=== PATIENT | female | born 1935 | race Hispanic/Latino ===

== ENCOUNTER 2017-07-12 14:42 | Inpatient (IN) | payer OTHER ==
[2017-07-12] VITALS (7 sets, daily range): BP systolic 125–199; BP diastolic 64–87
[2017-07-12] MEDS ORDERED: METHYLPREDNISOLONE SOD SUCC 125MG/2ML VIAL ONE (15:12)
[2017-07-12] MEDS ORDERED: DiphenhydrAMINE HCL 50 MG/ML VIAL ONE (15:12)
[2017-07-12 15:30] LABS: BASOPHILS % (AUTO) 0.5 % (0.0-5.0); HEMATOCRIT 33.3 % (36-48); LYMPHOCYTES % (AUTO) 11.4 % (21.0-51.0); MEAN CORPUSCULAR HGB CONC 34.4 g/dL (32.0-36.0); MONOCYTES % (AUTO) 6.2 % (3.0-13.0); NEUTROPHILS % (AUTO) 76.9 % (40.0-77.0); PLATELET COUNT (AUTO) 159 K/uL (130-400); RED CELL DISTRIBUTION WIDTH 17.1 % (11.0-15.5); WHITE BLOOD COUNT (AUTO) 6.4 K/uL (4.8-10.8)
[2017-07-12] MEDS ORDERED: LABETALOL HCL 5 MG/ML 20ML VIAL IV ONE (15:35)
[2017-07-12] MEDS ORDERED: PHENYLEPHRINE HCL 10 MG/ML 1ML VIAL IV ONE (16:12)
[2017-07-12] MEDS ORDERED: ATROPINE SULFATE 0.1 MG/ML 10 ML SYG IVP ONE (16:12)
[2017-07-12] MEDS ORDERED: GLYCOPYRROLATE 0.2 MG/ML 5 ML VIAL ONE (16:12)
[2017-07-12] MEDS ORDERED: LIDOCAINE PF 2% 5ML ABBOJECT ONE (16:12)
[2017-07-12] MEDS ORDERED: LIDOCAINE HCL MPF 1% 5ML VIAL ONE (16:12)
[2017-07-12] MEDS ORDERED: PROPOFOL 10 MG/ML 20ML VIAL IV ONE (16:12)
[2017-07-12] MEDS ORDERED: NEOSTIGMINE METHYLSULFATE 1MG/ML IV ONE (16:12)
[2017-07-12] MEDS ORDERED: ROCURONIUM BROMIDE 10MG/1ML 5ML VL ONE (16:13)
[2017-07-12] MEDS ORDERED: LIDOCAINE 2%-EPI 1:200,000 20 ML VIAL IJ ONE (16:13)
[2017-07-12] MEDS ORDERED: EPINEPHRINE 1 MG/ML AMPULE ONE (16:13)
[2017-07-12] MEDS ORDERED: LIDOCAINE HCL 2% JELLY 5 ML ONE (16:13)
[2017-07-12] MEDS ORDERED: LIDOCAINE HCL 4% LTA SOL 4 ML VIAL ONE (16:13)
[2017-07-12] MEDS ORDERED: NOREPINEPHRINE BITARTRATE 1 MG/1 ML ML IV ONE (16:13)
[2017-07-12] MEDS ORDERED: FENTANYL CITRATE PF 50 MCG/1 ML 5ML AMP IV ONE (16:14)
[2017-07-12] MEDS ORDERED: MIDAZOLAM HCL 1 MG/ML 2ML VIAL ONE (16:14)
[2017-07-12 16:17] LABS: ALBUMIN 2.4 g/dL (3.5-5.0); BILIRUBIN,TOTAL 0.4 mg/dL (0.2-1.0); CREATININE 3.5 mg/dL (0.5-1.5); POTASSIUM 3.8 mmol/L (3.5-5.1); TOTAL PROTEIN, SERUM 6.5 g/dL (6.0-8.3)
[2017-07-12] MEDS ORDERED: ISOVUE-300 100 ML VIAL IV ONE (16:23)
[2017-07-12] MEDS ORDERED: HEPARIN SODIUM 1000UNIT/ML 10ML VIAL ONE (16:23)
[2017-07-12 16:38] LABS: INR 0.99 (0.85-1.15); PARTIAL THROMBOPLASTIN TIME 26.9 SEC (26.3-35.5); PROTHROMBIN TIME 10.4 SEC (9.6-11.6)
[2017-07-12] MEDS ORDERED: CEFAZOLIN 1GM / D5W 50ML 100 ML ONE (18:08)
[2017-07-12] MEDS ORDERED: PROTAMINE SULFATE 10 MG/ML 25ML VIAL IV ONE (18:53)
[2017-07-12] MEDS ORDERED: MORPHINE SULFATE 4 MG/1ML SYG IV PRN (19:15)
[2017-07-12] MEDS ORDERED: ONDANSETRON HCL 4 MG/2 ML VIAL IV PRN (19:15)
[2017-07-12] MEDS ORDERED: HYDRALAZINE HCL 20 MG/ML VIAL IV PRN (19:15)
[2017-07-12] MEDS ORDERED: ACETAMINOPHEN 325 MG TAB PO PRN ×2 (19:15)
[2017-07-12] MEDS ORDERED: ACETAMINOPHEN-CODEINE 300/30MG TAB PO PRN ×2 (19:15)
[2017-07-12 23:03] LABS: ABG BASE EXCESS -2.8 mmol/L (-2.0-3.0); ABG HCO3 19.6 mmol/L (21.0-28.0); ABG OXYGEN SATURATION 99.1 % (95.0-99.0); ABG PCO2 28 mmHg (32-45)
[2017-07-13] VITALS (20 sets, daily range): BP systolic 88–186; BP diastolic 49–92
[2017-07-13] MEDS ORDERED: PROPOFOL 1000 MG/100 ML IV PRN (00:15)
[2017-07-13] MEDS ORDERED: PROPOFOL 1000 MG/100 ML 100 ML IV PRN (00:45)
[2017-07-13 04:53] LABS: HEMATOCRIT 25.3 % (36-48); MEAN CORPUSCULAR HGB CONC 33.6 g/dL (32.0-36.0); MEAN CORPUSCULAR VOLUME 89.4 fL (79-99); PLATELET COUNT (AUTO) 152 K/uL (130-400); RED BLOOD CELL COUNT(AUTO) 2.83 MIL/uL (4.00-5.50); RED CELL DISTRIBUTION WIDTH 17.6 % (11.0-15.5)
[2017-07-13 05:45] LABS: CREATININE 3.9 mg/dL (0.5-1.5); POTASSIUM 4.6 mmol/L (3.5-5.1)
[2017-07-13] MEDS: LEVOTHYROXINE 50 MCG TABLET PO SCH (06:30)
[2017-07-13 07:21] LABS: ABG HCO3 21.4 mmol/L (21.0-28.0); ABG OXYGEN SATURATION 98.7 % (95.0-99.0); ABG PCO2 30 mmHg (32-45)
[2017-07-13] MEDS: LISINOPRIL 20 MG TABLET PO SCH (09:00)
[2017-07-13] MEDS ORDERED: PANTOPRAZOLE 40 MG/VIAL IVP SCH (09:00)
[2017-07-13] MEDS: METOPROLOL TARTRATE 25 MG TAB PO SCH (09:00)
[2017-07-13] MEDS: HYDROXYCHLOROQUINE SULFATE 200 MG TAB PO SCH (09:00)
[2017-07-13] MEDS: AMLODIPINE BESYLATE 5 MG TAB PO SCH (09:00)
[2017-07-13 10:23] LABS: ABG BASE EXCESS -7.3 mmol/L (-2.0-3.0); ABG HCO3 14.9 mmol/L (21.0-28.0); ABG OXYGEN SATURATION 98.9 % (95.0-99.0); ABG PCO2 23 mmHg (32-45)
[2017-07-13] MEDS ORDERED: HEPARIN SODIUM 5000UNIT/ML 1ML VIAL IJ PRN ×2 (12:15)
[2017-07-13] MEDS ORDERED: SODIUM CHLORIDE 0.9% 1000ML 1,000 ML IV PRN (12:15)
[2017-07-13] MEDS ORDERED: 0.9% SODIUM CHLORIDE 250 ML IV BAG IV PRN (12:15)
[2017-07-13] MEDS ORDERED: ALBUMIN (HUMAN) 25% 100 ML IV PRN (12:15)
[2017-07-13] MEDS: FAMOTIDINE/PF 20 MG/2 ML VIAL IV SCH (20:07)
[2017-07-14 03:41] VITALS: BP 144/71
[2017-07-14 03:59] LABS: HEMATOCRIT 26.7 % (36-48); MEAN CORPUSCULAR HEMOGLOBIN 31.4 pg (27.0-33.0); MEAN CORPUSCULAR HGB CONC 34.9 g/dL (32.0-36.0); MEAN CORPUSCULAR VOLUME 90.1 fL (79-99); PLATELET COUNT (AUTO) 136 K/uL (130-400); RED BLOOD CELL COUNT(AUTO) 2.96 MIL/uL (4.00-5.50); RED CELL DISTRIBUTION WIDTH 17.2 % (11.0-15.5); WHITE BLOOD COUNT (AUTO) 8.6 K/uL (4.8-10.8)
[2017-07-14 04:14] LABS: CREATININE 2.6 mg/dL (0.5-1.5); PHOSPHORUS 4.7 mg/dL (2.5-4.9); POTASSIUM 4.1 mmol/L (3.5-5.1); THYROID STIMULATING HORMONE 3.37 uIU/mL (0.36-3.74)
[2017-07-14 04:21] LABS: LYMPHOCYTES % (MANUAL) 10 % (22-44); MAN.DIFF COMMENT-IMPRESSION MANUAL DIFFERENTIAL; MONOCYTES % (MANUAL) 1 % (2-9); PLATELET MORPHOLOGY COMMENT SLIGHTLY DECREASED; SEGMENTED NEUTROPHILS % 89 % (40-70)
[2017-07-14] MEDS: LEVOTHYROXINE 50 MCG TABLET PO SCH (05:53)
[2017-07-14 07:12] VITALS: BP 144/58
[2017-07-14] MEDS: METOPROLOL TARTRATE 25 MG TAB PO SCH (08:32)
[2017-07-14] MEDS: AMLODIPINE BESYLATE 5 MG TAB PO SCH (08:33)
[2017-07-14] MEDS: HYDROXYCHLOROQUINE SULFATE 200 MG TAB PO SCH (08:33)
[2017-07-14] MEDS: LISINOPRIL 20 MG TABLET PO SCH (08:33)
[2017-07-14] MEDS ORDERED: ACET1TAB12 PO (09:48)
[2017-07-14 11:04] VITALS: BP 121/63
[2017-07-14 16:04] VITALS: BP 131/58
[2017-07-14 19:26] VITALS: BP 117/51
[2017-07-14] MEDS: FAMOTIDINE/PF 20 MG/2 ML VIAL IV SCH (20:32)
[2017-07-14 23:44] VITALS: BP 130/64
[2017-07-15 03:54] VITALS: BP 128/66
[2017-07-15 04:03] LABS: HEMATOCRIT 24.3 % (36-48); MEAN CORPUSCULAR HEMOGLOBIN 29.8 pg (27.0-33.0); MEAN CORPUSCULAR HGB CONC 32.8 g/dL (32.0-36.0); MEAN CORPUSCULAR VOLUME 91.1 fL (79-99); PLATELET COUNT (AUTO) 117 K/uL (130-400); RED BLOOD CELL COUNT(AUTO) 2.67 MIL/uL (4.00-5.50); RED CELL DISTRIBUTION WIDTH 17.4 % (11.0-15.5); WHITE BLOOD COUNT (AUTO) 6.6 K/uL (4.8-10.8)
[2017-07-15 04:17] LABS: CREATININE 4.2 mg/dL (0.5-1.5); POTASSIUM 4.2 mmol/L (3.5-5.1)
[2017-07-15] MEDS: LEVOTHYROXINE 50 MCG TABLET PO SCH (05:38)
[2017-07-15 07:30] VITALS: BP 139/82
[2017-07-15] MEDS: AMLODIPINE BESYLATE 5 MG TAB PO SCH (09:16)
[2017-07-15] MEDS: LISINOPRIL 20 MG TABLET PO SCH (09:16)
[2017-07-15] MEDS: HYDROXYCHLOROQUINE SULFATE 200 MG TAB PO SCH (09:16)
[2017-07-15] MEDS: METOPROLOL TARTRATE 25 MG TAB PO SCH (09:16)
[2017-07-15 11:43] VITALS: BP 139/69
[2017-07-15 16:11] VITALS: BP 145/68
== END 2017-07-15 18:15 | DRG 268 ==
LOC: EDBD → EDH 14:42 → EDHIP 14:43 → 2CH 19:42 → 2AH 07-13 18:49
PROVIDERS: ADMIT Internal Medicine; ATTEND Internal Medicine
PROC: 04V03DZ Restriction of Abdominal Aorta with Intraluminal Device, Percutaneous Approach (ICD-10-PCS; principal; 2017-07-12)
PROC: B4101ZZ Fluoroscopy of Abdominal Aorta using Low Osmolar Contrast (ICD-10-PCS; 2017-07-12)
PROC: 5A1D70Z Performance of Urinary Filtration, Intermittent, Less than 6 Hours Per Day (ICD-10-PCS; 2017-07-13)
PROC: 5A1935Z Respiratory Ventilation, Less than 24 Consecutive Hours (ICD-10-PCS; 2017-07-13)
PROC: 0BH17EZ Insertion of Endotracheal Airway into Trachea, Via Natural or Artificial Opening (ICD-10-PCS; 2017-07-13)
DX: I71.3 Abdominal aortic aneurysm, ruptured (principal); N18.6 End stage renal disease; J96.90 Respiratory failure, unspecified, unspecified whether with hypoxia or hypercapnia; I12.0 Hypertensive chronic kidney disease with stage 5 chronic kidney disease or end stage renal disease; E03.9 Hypothyroidism, unspecified; E78.5 Hyperlipidemia, unspecified; D63.8 Anemia in other chronic diseases classified elsewhere; I25.10 Atherosclerotic heart disease of native coronary artery without angina pectoris; M19.90 Unspecified osteoarthritis, unspecified site; Z96.641 Presence of right artificial hip joint; Z96.651 Presence of right artificial knee joint; Z99.2 Dependence on renal dialysis; Z86.79 Personal history of other diseases of the circulatory system; Z98.42 Cataract extraction status, left eye; Z98.41 Cataract extraction status, right eye
CPT/HCPCS: 34706; 34713; 36415; 36600; 71045; 80048; 80053; 82803; 84100; 84443; 85025; 85027; 85347; 85610; 85730; 86850; 86900; 86901; 86922; 90935; 94002; 94003; 97039; A4344; C1725; C1760; C1769; C1887; C1894; C9113; J0171; J0360; J0461; J0690; J1200; J1644; J2001; J2250; J2370; J2704; J2710; J2720; J2930; J3010; J3490; J7030; Q9967

== ENCOUNTER 2017-11-08 13:24 | Inpatient (IN) | payer OTHER, MEDICARE ==
[~2017-11-08] VITALS: Ht 152.4 cm; Wt 56.3 kg
[2017-11-08] VITALS (7 sets, daily range): BP systolic 126–166; BP diastolic 55–84
[~2017-11-08 13:24] MED LIST changes: -AMLO10TA4 PO; -FERR325T22 PO; -FOLI1TAB85 PO; -HYDR200T4 PO; -IOPAMIDOL-370 100 ML VIAL IV ONE; -IOPAMIDOL-370 75 ML VIAL IV ONE; -LEVO88TA4 PO; -LISI-613 PO; -LISI2.5T2 PO; -METO-408 PO; -PANT40TA25 PO
[2017-11-08 13:57] LABS: BASOPHILS % (AUTO) 1.2 % (0.0-5.0); HEMATOCRIT 33.8 % (36-48); LYMPHOCYTES % (AUTO) 10.8 % (21.0-51.0); MEAN CORPUSCULAR HEMOGLOBIN 28.7 pg (27.0-33.0); MEAN CORPUSCULAR HGB CONC 33.2 g/dL (32.0-36.0); MEAN CORPUSCULAR VOLUME 86.6 fL (79-99); MONOCYTES % (AUTO) 6.5 % (3.0-13.0); NEUTROPHILS % (AUTO) 77.5 % (40.0-77.0); PLATELET COUNT (AUTO) 141 K/uL (130-400); RED BLOOD CELL COUNT(AUTO) 3.91 MIL/uL (4.00-5.50); RED CELL DISTRIBUTION WIDTH 18.6 % (11.0-15.5); WHITE BLOOD COUNT (AUTO) 7.8 K/uL (4.8-10.8)
[2017-11-08 14:07] LABS: POTASSIUM 4.1 mmol/L (3.5-5.1)
[2017-11-08 14:11] LABS: INR 0.98 (0.85-1.15); PARTIAL THROMBOPLASTIN TIME 30.1 SEC (26.3-35.5); PROTHROMBIN TIME 10.3 SEC (9.6-11.6)
[2017-11-08 14:12] LABS: ALBUMIN 2.4 g/dL (3.5-5.0); BILIRUBIN,TOTAL 0.3 mg/dL (0.2-1.0); TOTAL PROTEIN, SERUM 6.9 g/dL (6.0-8.3)
[2017-11-08] MEDS ORDERED: DiphenhydrAMINE HCL 50 MG/ML VIAL ONE (16:31)
[2017-11-08] MEDS ORDERED: METHYLPREDNISOLONE SOD SUCC 125MG/2ML VIAL ONE (16:31)
[2017-11-08] MEDS ORDERED: DiphenhydrAMINE HCL 50 MG/ML VIAL IVP SCH (17:45)
[2017-11-08] MEDS ORDERED: METHYLPREDNISOLONE SOD SUCC 125MG/2ML VIAL IVP SCH (17:45)
[2017-11-08] MEDS ORDERED: LISI-613 PO (17:48)
[2017-11-08] MEDS ORDERED: METO-408 PO (17:48)
[2017-11-08] MEDS ORDERED: HYDR200T4 PO (17:48)
[2017-11-08] MEDS ORDERED: LEVO88TA4 PO (17:48)
[2017-11-08] MEDS ORDERED: AMLO10TA4 PO (17:48)
[2017-11-08] MEDS ORDERED: FERR325T22 PO (17:48)
[2017-11-08] MEDS ORDERED: FOLI1TAB85 PO (17:48)
[2017-11-08] MEDS ORDERED: MIDAZOLAM HCL 1 MG/ML 2ML VIAL ONE ×3 (17:51→18:14)
[2017-11-08] MEDS ORDERED: ISOVUE-300 100 ML VIAL IV ONE (18:11)
[2017-11-08] MEDS ORDERED: HEPARIN SODIUM 1000UNIT/ML 10ML VIAL ONE (18:11)
[2017-11-08] MEDS ORDERED: NEOSTIGMINE 5MG/5ML SYR IV ONE (18:14)
[2017-11-08] MEDS ORDERED: DEXAMETHASONE SOD PHOSPHATE 10MG/ML 1ML VIAL ONE (18:14)
[2017-11-08] MEDS ORDERED: PROPOFOL 10 MG/ML 20ML VIAL IV ONE (18:14)
[2017-11-08] MEDS ORDERED: LIDOCAINE PF 2% 5ML ABBOJECT ONE (18:14)
[2017-11-08] MEDS ORDERED: ONDANSETRON HCL 4 MG/2 ML VIAL ONE (18:14)
[2017-11-08] MEDS ORDERED: GLYCOPYRROLATE 0.2 MG/ML 5 ML VIAL ONE (18:14)
[2017-11-08] MEDS ORDERED: FENTANYL CITRATE PF 50 MCG/1 ML 2ML VIAL ONE ×2 (18:15)
[2017-11-08] MEDS ORDERED: CEFAZOLIN SODIUM 1 GM VIAL ONE (18:56)
[2017-11-08] MEDS ORDERED: PROTAMINE SULFATE 10 MG/ML 25ML VIAL IV ONE (20:17)
[2017-11-08] MEDS ORDERED: ONDANSETRON HCL 4 MG/2 ML VIAL IV PRN (20:45)
[2017-11-08] MEDS: METOPROLOL TARTRATE 25 MG TAB PO SCH (21:50)
[2017-11-08] MEDS ORDERED: HYDRALAZINE HCL 20 MG/ML VIAL IM PRN (22:30)
[2017-11-09] VITALS (24 sets, daily range): BP systolic 88–174; BP diastolic 30–109
[2017-11-09 03:17] LABS: CREATININE 3.4 mg/dL (0.5-1.5); POTASSIUM 4.5 mmol/L (3.5-5.1)
[2017-11-09 04:23] LABS: HEMATOCRIT 26.4 % (36-48); MEAN CORPUSCULAR HEMOGLOBIN 30.1 pg (27.0-33.0); MEAN CORPUSCULAR HGB CONC 34.3 g/dL (32.0-36.0); MEAN CORPUSCULAR VOLUME 87.7 fL (79-99); PLATELET COUNT (AUTO) 102 K/uL (130-400); RED BLOOD CELL COUNT(AUTO) 3.01 MIL/uL (4.00-5.50); RED CELL DISTRIBUTION WIDTH 18.2 % (11.0-15.5); WHITE BLOOD COUNT (AUTO) 6.4 K/uL (4.8-10.8)
[2017-11-09] MEDS: LEVOTHYROXINE 88 MCG TABLET PO SCH (07:30)
[2017-11-09] MEDS: FERROUS SULFATE 325 MG TABLET.DR PO SCH (08:00)
[2017-11-09] MEDS ORDERED: GUAIFENESIN-DM 200/20 MG 10 ML PO PRN (08:00)
[2017-11-09] MEDS ORDERED: ACETAMINOPHEN 325 MG TAB PO PRN ×2 (08:00)
[2017-11-09] MEDS ORDERED: ZOLPIDEM TARTRATE 5 MG TAB PO PRN (08:00)
[2017-11-09] MEDS ORDERED: LACTULOSE 20 GM/30 ML UDCUP PO PRN (08:00)
[2017-11-09] MEDS: FOLIC ACID/VITAMIN B COMP W-C 1 MG CAPSULE PO SCH (08:00)
[2017-11-09] MEDS ORDERED: NITROGLYCERIN 0.4 MG SL TAB SL PRN (08:00)
[2017-11-09] MEDS: HYDROXYCHLOROQUINE SULFATE 200 MG TAB PO SCH (08:00)
[2017-11-09] MEDS ORDERED: MAG HYDROX/AL HYDROX/SIMETH ES 30 ML SUSP UDCUP PO PRN (08:00)
[2017-11-09] MEDS ORDERED: MAGNESIUM CITRATE 296 ML SOLUTION PO SCH (08:45)
[2017-11-09] MEDS ORDERED: PEG 3350/NA SULF,BICARB,CL/KCL 4000 ML SOLN PO SCH (08:45)
[2017-11-09] MEDS: METOPROLOL TARTRATE 25 MG TAB PO SCH ×2 (08:57→21:00)
[2017-11-09] MEDS: AMLODIPINE BESYLATE 5 MG TAB PO SCH (08:57)
[2017-11-09] MEDS: LISINOPRIL 20 MG TABLET PO SCH (08:57)
[2017-11-09 09:00] LABS: HEMATOCRIT 22.5 % (36-48)
[2017-11-09] MEDS ORDERED: PANTOPRAZOLE SODIUM 40 MG TABLET.DR PO SCH (09:00)
[2017-11-09 09:14] LABS: INR 1.05 (0.85-1.15); PARTIAL THROMBOPLASTIN TIME 31.8 SEC (26.3-35.5)
[2017-11-09] MEDS: LACTULOSE 20 GM/30 ML UDCUP PO SCH (09:21)
[2017-11-09] MEDS: PANTOPRAZOLE 40 MG/VIAL IVP SCH ×2 (09:21→21:08)
[2017-11-09] MEDS: ONDANSETRON HCL MDV 20ML 2 MG/ML VIAL IVP PRN (10:53)
[2017-11-09 14:52] LABS: CREATININE 3.5 mg/dL (0.5-1.5); POTASSIUM 4.3 mmol/L (3.5-5.1)
[2017-11-09] MEDS ORDERED: HEPARIN SODIUM 5000UNIT/ML 1ML VIAL ONE (14:57)
[2017-11-09 15:17] LABS: CREATINE KINASE MB 1.1 ng/mL (0.5-3.6)
[2017-11-09 15:19] LABS: TROPONIN I 0.78 ng/mL (0.00-0.06)
[2017-11-09 15:58] LABS: HEMATOCRIT 33.6 % (36-48)
[2017-11-09 16:26] LABS: HEMATOCRIT 35.8 % (36-48)
[2017-11-09 19:45] LABS: TROPONIN I 0.76 ng/mL (0.00-0.06)
[2017-11-09 20:59] LABS: HEMATOCRIT 29.1 % (36-48)
[2017-11-10] VITALS (23 sets, daily range): BP systolic 79–129; BP diastolic 30–74
[2017-11-10 03:18] LABS: BASOPHILS % (AUTO) 1.1 % (0.0-5.0); EOSINOPHILS % (AUTO) 0.7 % (0.0-8.0); HEMATOCRIT 27.2 % (36-48); LYMPHOCYTES % (AUTO) 11.3 % (21.0-51.0); MEAN CORPUSCULAR HGB CONC 33.8 g/dL (32.0-36.0); MEAN CORPUSCULAR VOLUME 85.8 fL (79-99); MONOCYTES % (AUTO) 6.3 % (3.0-13.0); NEUTROPHILS % (AUTO) 80.6 % (40.0-77.0); NUCLEATED RED BLOOD CELLS 0.1 % (0.0-0.19); PLATELET COUNT (AUTO) 68 K/uL (130-400); RED BLOOD CELL COUNT(AUTO) 3.16 MIL/uL (4.00-5.50); WHITE BLOOD COUNT (AUTO) 10.7 K/uL (4.8-10.8)
[2017-11-10 03:53] LABS: ALANINE AMINOTRANSFERASE < 6 U/L (12-78); ALBUMIN 1.8 g/dL (3.5-5.0); ASPARTATE AMINOTRANSFERASE 26 U/L (10-37); BILIRUBIN,TOTAL 0.3 mg/dL (0.2-1.0); CARBON DIOXIDE 30 mmol/L (21-32); CHLORIDE 110 mmol/L (101-111); CREATINE KINASE MB 3.7 ng/mL (0.5-3.6); CREATINE KINASE, TOTAL 44 U/L (21-232); CREATININE 4.1 mg/dL (0.5-1.5); GLOMERULAR FILTR. RATE CALC 11 mL/min (>60); GLUCOSE,RANDOM 85 mg/dL (70-105); POTASSIUM 4.4 mmol/L (3.5-5.1); SODIUM SERUM 146 mmol/L (136-145); TOTAL PROTEIN, SERUM 4.5 g/dL (6.0-8.3); UREA NITROGEN, BLOOD 26 mg/dL (7-18)
[2017-11-10] MEDS: LEVOTHYROXINE 88 MCG TABLET PO SCH (07:30)
[2017-11-10] MEDS: LACTULOSE 20 GM/30 ML UDCUP PO SCH (07:47)
[2017-11-10] MEDS: FERROUS SULFATE 325 MG TABLET.DR PO SCH (07:47)
[2017-11-10] MEDS: FOLIC ACID/VITAMIN B COMP W-C 1 MG CAPSULE PO SCH (07:47)
[2017-11-10] MEDS: HYDROXYCHLOROQUINE SULFATE 200 MG TAB PO SCH (07:47)
[2017-11-10] MEDS: LISINOPRIL 20 MG TABLET PO SCH (07:48)
[2017-11-10] MEDS: METOPROLOL TARTRATE 25 MG TAB PO SCH ×2 (07:48→20:48)
[2017-11-10] MEDS: AMLODIPINE BESYLATE 5 MG TAB PO SCH (07:48)
[2017-11-10] MEDS: PANTOPRAZOLE 40 MG/VIAL IVP SCH ×2 (08:55→20:48)
[2017-11-10 09:35] LABS: CREATINE KINASE MB 17.5 ng/mL (0.5-3.6)
[2017-11-10 09:37] LABS: TROPONIN I 2.76 ng/mL (0.00-0.06)
[2017-11-10] MEDS ORDERED: SODIUM CHLORIDE 0.9% 250 ML IV ONE (10:14)
[2017-11-10 14:05] LABS: HEMATOCRIT 27.9 % (36-48)
[2017-11-10 20:36] LABS: HEMATOCRIT 26.4 % (36-48)
[2017-11-11] VITALS (16 sets, daily range): BP systolic 109–137; BP diastolic 30–93
[2017-11-11 05:23] LABS: HEMATOCRIT 24.8 % (36-48); MEAN CORPUSCULAR HEMOGLOBIN 28.7 pg (27.0-33.0); MEAN CORPUSCULAR HGB CONC 34.4 g/dL (32.0-36.0); MEAN CORPUSCULAR VOLUME 83.4 fL (79-99); NUCLEATED RED BLOOD CELLS 0.2 % (0.0-0.19); PLATELET COUNT (AUTO) 80 K/uL (130-400); RED BLOOD CELL COUNT(AUTO) 2.97 MIL/uL (4.00-5.50); RED CELL DISTRIBUTION WIDTH 17.9 % (11.0-15.5); WHITE BLOOD COUNT (AUTO) 17.3 K/uL (4.8-10.8)
[2017-11-11 05:31] LABS: CREATININE 5.1 mg/dL (0.5-1.5); POTASSIUM 4.5 mmol/L (3.5-5.1)
[2017-11-11] MEDS: HYDROXYCHLOROQUINE SULFATE 200 MG TAB PO SCH (08:13)
[2017-11-11] MEDS: METOPROLOL TARTRATE 25 MG TAB PO SCH ×2 (08:13→21:18)
[2017-11-11] MEDS: LEVOTHYROXINE 88 MCG TABLET PO SCH (08:13)
[2017-11-11] MEDS: FOLIC ACID/VITAMIN B COMP W-C 1 MG CAPSULE PO SCH (08:13)
[2017-11-11] MEDS: LACTULOSE 20 GM/30 ML UDCUP PO SCH (09:17)
[2017-11-11] MEDS: PANTOPRAZOLE 40 MG/VIAL IVP SCH ×2 (09:17→21:18)
[2017-11-11 12:27] LABS: HEMATOCRIT 27.5 % (36-48)
[2017-11-11] MEDS: ONDANSETRON HCL MDV 20ML 2 MG/ML VIAL IVP PRN (23:24)
[2017-11-11] MEDS: ACETAMINOPHEN-CODEINE 300/30MG TAB PO PRN ×2 (23:25→23:31)
[2017-11-12] VITALS (7 sets, daily range): BP systolic 94–123; BP diastolic 41–59
[2017-11-12 04:17] LABS: HEMATOCRIT 23.5 % (36-48); MEAN CORPUSCULAR HEMOGLOBIN 28.4 pg (27.0-33.0); MEAN CORPUSCULAR HGB CONC 33.8 g/dL (32.0-36.0); MEAN CORPUSCULAR VOLUME 84.1 fL (79-99); NUCLEATED RED BLOOD CELLS 0.2 % (0.0-0.19); PLATELET COUNT (AUTO) 75 K/uL (130-400); RED BLOOD CELL COUNT(AUTO) 2.79 MIL/uL (4.00-5.50); RED CELL DISTRIBUTION WIDTH 18.7 % (11.0-15.5); WHITE BLOOD COUNT (AUTO) 17.4 K/uL (4.8-10.8)
[2017-11-12 04:33] LABS: CREATININE 5.9 mg/dL (0.5-1.5); MAGNESIUM 2.1 mg/dL (1.80-2.40); PHOSPHORUS 5.7 mg/dL (2.5-4.9); POTASSIUM 4.3 mmol/L (3.5-5.1)
[2017-11-12] MEDS ORDERED: SODIUM CHLORIDE 0.9% 1000ML 1,000 ML IV ONE (08:28)
[2017-11-12] MEDS ORDERED: ALBUMIN (HUMAN) 25% 100 ML IV PRN (08:45)
[2017-11-12] MEDS ORDERED: HEPARIN SODIUM 5000UNIT/ML 1ML VIAL IJ PRN (08:45)
[2017-11-12] MEDS ORDERED: 0.9% SODIUM CHLORIDE 250 ML IV BAG IV PRN (08:45)
[2017-11-12] MEDS: LACTULOSE 20 GM/30 ML UDCUP PO SCH (08:45)
[2017-11-12] MEDS ORDERED: SODIUM CHLORIDE 0.9% 1000ML 1,000 ML IV PRN (08:45)
[2017-11-12] MEDS ORDERED: EPOETIN ALFA 3,000 UNIT/ML ML SQ SCH (08:57)
[2017-11-12] MEDS ORDERED: EPOETIN ALFA 20,000 UNIT/ML VIAL SQ SCH ×2 (09:13→10:00)
[2017-11-12] MEDS ORDERED: COMPOUND IV REFRIGERATED 1 EACH IVSOLN MISC PRN (10:00)
[2017-11-12] MEDS: HYDROXYCHLOROQUINE SULFATE 200 MG TAB PO SCH (10:35)
[2017-11-12] MEDS: LEVOTHYROXINE 88 MCG TABLET PO SCH (10:35)
[2017-11-12] MEDS: FOLIC ACID/VITAMIN B COMP W-C 1 MG CAPSULE PO SCH (10:35)
[2017-11-12] MEDS: PANTOPRAZOLE 40 MG/VIAL IVP SCH ×2 (10:36→21:04)
[2017-11-12] MEDS: METOPROLOL TARTRATE 25 MG TAB PO SCH ×2 (10:36→20:51)
[2017-11-13 03:48] VITALS: BP 97/44
[2017-11-13 04:21] LABS: HEMATOCRIT 21.2 % (36-48); MEAN CORPUSCULAR HEMOGLOBIN 29.9 pg (27.0-33.0); MEAN CORPUSCULAR HGB CONC 35.5 g/dL (32.0-36.0); MEAN CORPUSCULAR VOLUME 84.4 fL (79-99); NUCLEATED RED BLOOD CELLS 0.1 % (0.0-0.19); PLATELET COUNT (AUTO) 76 K/uL (130-400); RED BLOOD CELL COUNT(AUTO) 2.52 MIL/uL (4.00-5.50); RED CELL DISTRIBUTION WIDTH 18.2 % (11.0-15.5); WHITE BLOOD COUNT (AUTO) 11.8 K/uL (4.8-10.8)
[2017-11-13 04:41] LABS: BAND NEUTROPHILS % (MANUAL) 10 % (0-2); LYMPHOCYTES % (MANUAL) 11 % (22-44); MAN.DIFF COMMENT-IMPRESSION MANUAL DIFFERENTIAL; MONOCYTES % (MANUAL) 13 % (2-9); SEGMENTED NEUTROPHILS % 66 % (40-70)
[2017-11-13 04:42] LABS: CREATININE 3.5 mg/dL (0.5-1.5); PLATELET MORPHOLOGY COMMENT DECREASED; POTASSIUM 4.1 mmol/L (3.5-5.1)
[2017-11-13] MEDS: LEVOTHYROXINE 88 MCG TABLET PO SCH (06:08)
[2017-11-13 08:09] VITALS: BP 114/56
[2017-11-13] MEDS: METOPROLOL TARTRATE 25 MG TAB PO SCH ×2 (09:27→21:18)
[2017-11-13] MEDS: HYDROXYCHLOROQUINE SULFATE 200 MG TAB PO SCH (09:27)
[2017-11-13] MEDS: FOLIC ACID/VITAMIN B COMP W-C 1 MG CAPSULE PO SCH (09:27)
[2017-11-13] MEDS: PANTOPRAZOLE SODIUM 40 MG TABLET.DR PO SCH ×2 (09:30→17:45)
[2017-11-13 11:39] VITALS: BP 107/55
[2017-11-13 16:00] VITALS: BP 108/54
[2017-11-13 19:19] LABS: HEMATOCRIT 23.1 % (36-48)
[2017-11-13 19:27] VITALS: BP 105/47
[2017-11-13 23:50] VITALS: BP 114/51
[2017-11-14 03:40] VITALS: BP 107/45
[2017-11-14 04:39] LABS: HEMATOCRIT 22.4 % (36-48); MEAN CORPUSCULAR HGB CONC 34.1 g/dL (32.0-36.0); MEAN CORPUSCULAR VOLUME 85.2 fL (79-99); PLATELET COUNT (AUTO) 75 K/uL (130-400); RED BLOOD CELL COUNT(AUTO) 2.63 MIL/uL (4.00-5.50); RED CELL DISTRIBUTION WIDTH 18.3 % (11.0-15.5); WHITE BLOOD COUNT (AUTO) 9.9 K/uL (4.8-10.8)
[2017-11-14 04:45] LABS: CREATININE 4.5 mg/dL (0.5-1.5); POTASSIUM 4.2 mmol/L (3.5-5.1)
[2017-11-14 05:13] LABS: EOSINOPHILS % (MANUAL) 2 % (1-6); LYMPHOCYTES % (MANUAL) 7 % (22-44); MAN.DIFF COMMENT-IMPRESSION MANUAL DIFFERENTIAL; MONOCYTES % (MANUAL) 3 % (2-9); SEGMENTED NEUTROPHILS % 88 % (40-70)
[2017-11-14 05:14] LABS: PLATELET MORPHOLOGY COMMENT DECREASED
[2017-11-14 08:14] VITALS: BP 111/51
[2017-11-14] MEDS: HYDROXYCHLOROQUINE SULFATE 200 MG TAB PO SCH (08:40)
[2017-11-14] MEDS: PANTOPRAZOLE SODIUM 40 MG TABLET.DR PO SCH ×2 (08:40→16:37)
[2017-11-14] MEDS: FOLIC ACID/VITAMIN B COMP W-C 1 MG CAPSULE PO SCH (08:40)
[2017-11-14] MEDS: LEVOTHYROXINE 88 MCG TABLET PO SCH (08:40)
[2017-11-14] MEDS: METOPROLOL TARTRATE 25 MG TAB PO SCH ×2 (08:41→21:30)
[2017-11-14 12:00] VITALS: BP 112/63
[2017-11-14 16:00] VITALS: BP 131/59
[2017-11-14] MEDS: EPOETIN ALFA 20,000 UNIT/ML VIAL SQ SCH (18:20)
[2017-11-14 19:42] VITALS: BP 111/55
[2017-11-14 23:51] VITALS: BP 130/70
[2017-11-15] VITALS (21 sets, daily range): BP systolic 88–129; BP diastolic 33–66
[2017-11-15 03:14] LABS: POTASSIUM 3.9 mmol/L (3.5-5.1)
[2017-11-15 03:24] LABS: BASOPHILS % (AUTO) 0.5 % (0.0-5.0); EOSINOPHILS % (AUTO) 3.3 % (0.0-8.0); HEMATOCRIT 22.6 % (36-48); LYMPHOCYTES % (AUTO) 5.6 % (21.0-51.0); MEAN CORPUSCULAR HEMOGLOBIN 30.2 pg (27.0-33.0); MEAN CORPUSCULAR VOLUME 86.1 fL (79-99); NEUTROPHILS % (AUTO) 86.6 % (40.0-77.0); NUCLEATED RED BLOOD CELLS 0.1 % (0.0-0.19); PLATELET COUNT (AUTO) 69 K/uL (130-400); RED BLOOD CELL COUNT(AUTO) 2.63 MIL/uL (4.00-5.50); RED CELL DISTRIBUTION WIDTH 17.5 % (11.0-15.5); WHITE BLOOD COUNT (AUTO) 10.5 K/uL (4.8-10.8)
[2017-11-15] MEDS: PANTOPRAZOLE SODIUM 40 MG TABLET.DR PO SCH ×2 (07:30→14:32)
[2017-11-15] MEDS: LEVOTHYROXINE 88 MCG TABLET PO SCH (07:30)
[2017-11-15] MEDS: METOPROLOL TARTRATE 25 MG TAB PO SCH ×2 (09:00→20:39)
[2017-11-15] MEDS ORDERED: PROPOFOL 10 MG/ML 20ML VIAL IV ONE (12:15)
[2017-11-15] MEDS: FOLIC ACID/VITAMIN B COMP W-C 1 MG CAPSULE PO SCH (14:32)
[2017-11-15] MEDS: HYDROXYCHLOROQUINE SULFATE 200 MG TAB PO SCH (14:32)
[2017-11-16 03:42] VITALS: BP 114/58
[2017-11-16 04:53] LABS: BASOPHILS % (AUTO) 0.8 % (0.0-5.0); EOSINOPHILS % (AUTO) 7.2 % (0.0-8.0); HEMATOCRIT 23.9 % (36-48); LYMPHOCYTES % (AUTO) 10.5 % (21.0-51.0); MEAN CORPUSCULAR HEMOGLOBIN 28.6 pg (27.0-33.0); MEAN CORPUSCULAR HGB CONC 32.8 g/dL (32.0-36.0); MEAN CORPUSCULAR VOLUME 87.2 fL (79-99); MONOCYTES % (AUTO) 6.5 % (3.0-13.0); NUCLEATED RED BLOOD CELLS 0.1 % (0.0-0.19); PLATELET COUNT (AUTO) 101 K/uL (130-400); RED BLOOD CELL COUNT(AUTO) 2.74 MIL/uL (4.00-5.50); RED CELL DISTRIBUTION WIDTH 18.3 % (11.0-15.5); WHITE BLOOD COUNT (AUTO) 7.1 K/uL (4.8-10.8)
[2017-11-16 05:12] LABS: CREATININE 4.1 mg/dL (0.5-1.5); POTASSIUM 4.5 mmol/L (3.5-5.1)
[2017-11-16] MEDS: LEVOTHYROXINE 88 MCG TABLET PO SCH (06:21)
[2017-11-16] MEDS: PANTOPRAZOLE SODIUM 40 MG TABLET.DR PO SCH ×2 (06:21→15:45)
[2017-11-16 07:00] VITALS: BP 105/52
[2017-11-16] MEDS ORDERED: HEPARIN SODIUM 5000UNIT/ML 1ML VIAL IJ PRN (08:15)
[2017-11-16] MEDS: HYDROXYCHLOROQUINE SULFATE 200 MG TAB PO SCH (09:00)
[2017-11-16] MEDS: FOLIC ACID/VITAMIN B COMP W-C 1 MG CAPSULE PO SCH (09:00)
[2017-11-16] MEDS: METOPROLOL TARTRATE 25 MG TAB PO SCH ×2 (09:00→19:36)
[2017-11-16] MEDS ORDERED: EPOETIN ALFA 20,000 UNIT/ML VIAL SQ SCH (09:00)
[2017-11-16] MEDS ORDERED: PANT40TA25 PO (10:10)
[2017-11-16] MEDS ORDERED: LISI2.5T2 PO (10:11)
[2017-11-16 11:31] VITALS: BP 138/59
[2017-11-16] MEDS: EPOETIN ALFA 20,000 UNIT/ML VIAL SQ SCH (15:45)
[2017-11-16 16:29] VITALS: BP 125/61
[2017-11-16 19:17] VITALS: BP 126/61
[2017-11-16 23:27] VITALS: BP 132/60
[2017-11-17 03:23] VITALS: BP 131/64
[2017-11-17] MEDS: PANTOPRAZOLE SODIUM 40 MG TABLET.DR PO SCH (05:59)
[2017-11-17] MEDS: LEVOTHYROXINE 88 MCG TABLET PO SCH (05:59)
[2017-11-17 07:55] VITALS: BP 128/58
[2017-11-17] MEDS: FOLIC ACID/VITAMIN B COMP W-C 1 MG CAPSULE PO SCH (10:03)
[2017-11-17] MEDS: HYDROXYCHLOROQUINE SULFATE 200 MG TAB PO SCH (10:03)
[2017-11-17] MEDS: METOPROLOL TARTRATE 25 MG TAB PO SCH (10:04)
[2017-11-17 11:43] VITALS: BP 143/75
== END 2017-11-17 13:28 | disposition home or self-care (01) | DRG 268 ==
LOC: EDH 13:24 → EDHIP 16:20 → EDBD 16:20 → 2CH 17:25 → 2DH 11-11 19:08
PROVIDERS: ADMIT Internal Medicine; ATTEND Internal Medicine
PROC: B4101ZZ Fluoroscopy of Abdominal Aorta using Low Osmolar Contrast (ICD-10-PCS; principal; 2017-11-08)
PROC: 04V03DZ Restriction of Abdominal Aorta with Intraluminal Device, Percutaneous Approach (ICD-10-PCS; 2017-11-08)
PROC: 30233N1 Transfusion of Nonautologous Red Blood Cells into Peripheral Vein, Percutaneous Approach (ICD-10-PCS; 2017-11-09)
PROC: 5A1D70Z Performance of Urinary Filtration, Intermittent, Less than 6 Hours Per Day (ICD-10-PCS; 2017-11-09)
PROC: 5A1D70Z Performance of Urinary Filtration, Intermittent, Less than 6 Hours Per Day (ICD-10-PCS; 2017-11-12)
PROC: 5A1D70Z Performance of Urinary Filtration, Intermittent, Less than 6 Hours Per Day (ICD-10-PCS; 2017-11-14)
PROC: 0DB68ZX Excision of Stomach, Via Natural or Artificial Opening Endoscopic, Diagnostic (ICD-10-PCS; 2017-11-15)
PROC: 5A1D70Z Performance of Urinary Filtration, Intermittent, Less than 6 Hours Per Day (ICD-10-PCS; 2017-11-16)
DX: I71.4 Abdominal aortic aneurysm, without rupture (principal); I21.4 Non-ST elevation (NSTEMI) myocardial infarction; G12.9 Spinal muscular atrophy, unspecified; D69.6 Thrombocytopenia, unspecified; E11.21 Type 2 diabetes mellitus with diabetic nephropathy; I13.11 Hypertensive heart and chronic kidney disease without heart failure, with stage 5 chronic kidney disease, or end stage renal disease; D62 Acute posthemorrhagic anemia; N18.6 End stage renal disease; E11.22 Type 2 diabetes mellitus with diabetic chronic kidney disease; E11.51 Type 2 diabetes mellitus with diabetic peripheral angiopathy without gangrene; Z99.2 Dependence on renal dialysis; K64.9 Unspecified hemorrhoids; D72.829 Elevated white blood cell count, unspecified; E78.00 Pure hypercholesterolemia, unspecified; E78.5 Hyperlipidemia, unspecified; E89.0 Postprocedural hypothyroidism; I25.10 Atherosclerotic heart disease of native coronary artery without angina pectoris; K29.70 Gastritis, unspecified, without bleeding; K44.9 Diaphragmatic hernia without obstruction or gangrene; Z66 Do not resuscitate; Z96.641 Presence of right artificial hip joint; Z96.653 Presence of artificial knee joint, bilateral; Z88.8 Allergy status to other drugs, medicaments and biological substances; I25.2 Old myocardial infarction; Z86.79 Personal history of other diseases of the circulatory system; Z83.3 Family history of diabetes mellitus; Z82.49 Family history of ischemic heart disease and other diseases of the circulatory system; Z82.3 Family history of stroke
CPT/HCPCS: 34709; 34710; 34712; 34713; 36415; 36430; 74174; 74176; 78278; 80048; 80053; 82550; 82553; 82948; 83735; 83874; 83880; 84100; 84484; 85014; 85018; 85025; 85027; 85347; 85610; 85730; 86850; 86900; 86901; 86922; 88305; 88312; 90935; 93005; 93306; 97039; A4344; A9512; C1725; C1760; C1769; C1887; C1894; C9113; J0690; J0885; J1100; J1200; J1644; J2001; J2250; J2405; J2704; J2710; J2720; J2930; J3010; J3490; J7030; P9016; Q9967

== ENCOUNTER → 2017-11-08 | Outpatient (CLI) | payer OTHER, MEDICARE ==
[~2017-11-08] MED LIST: ACET1TAB12 PO; AMLO10TA4 PO; FERR325T22 PO; FOLI1TAB85 PO; HYDR200T4 PO; IOPAMIDOL-370 100 ML VIAL IV ONE; IOPAMIDOL-370 75 ML VIAL IV ONE; LEVO88TA4 PO; LISI-613 PO; LISI2.5T2 PO; METO-408 PO; PANT40TA25 PO
== END | disposition home or self-care (01) ==
LOC: EDBD → OIH 10-11 09:16
PROVIDERS: ATTEND Internal Medicine Cardiovascular Disease
DX: J90 Pleural effusion, not elsewhere classified (principal); K80.20 Calculus of gallbladder without cholecystitis without obstruction; I71.4 Abdominal aortic aneurysm, without rupture
CPT/HCPCS: 74174; Q9967